=== PATIENT | female | born 1960 | race Caucasian/White ===

== ENCOUNTER 2020-01-07 17:45 | Outpatient (REF) | payer OTHER, SELFPAY ==
[2020-01-07 19:16] LABS: HCT 38.6 % (36.0-46.0); HGB 13.1 g/dL (11.2-15.7); MCH 29.3 pg (27.0-33.0); MCHC 33.9 % (32.0-36.0); MCV 86.4 fL (80-95); MPV 9.8 fL (8.0-11.0); Platelet Count 308 10^3/uL (130-400); RBC 4.47 10^6/uL (3.93-5.22); RDW 13.1 % (11.7-14.6); RDW-SD 41.2 fL; WBC 8.35 10^3/uL (4.4-10.8)
[2020-01-07 19:40] LABS: FREE T4 0.98 ng/dL (0.76-1.46); TSH 3.93 uIU/mL (0.36-3.74)
== END 2020-01-07 18:05 ==
LOC: NCHCN 17:45
PROVIDERS: PCP Internal Medicine; Visit Provider Internal Medicine
DX: H61.21 Impacted cerumen, right ear (principal); H65.20 Chronic serous otitis media, unspecified ear; E05.00 Thyrotoxicosis with diffuse goiter without thyrotoxic crisis or storm
CPT/HCPCS: 85027; 84439; 84443

== ENCOUNTER 2021-04-08 17:07 | Outpatient (REF) | payer OTHER, SELFPAY ==
[2021-04-08 19:52] LABS: HCT 39.8 % (36.0-46.0); HGB 12.8 g/dL (11.2-15.7); MCH 28.4 pg (27.0-33.0); MCHC 32.2 % (32.0-36.0); MCV 88.4 fL (80-95); MPV 10.1 fL (8.0-11.0); Platelet Count 321 10^3/uL (130-400); RDW-SD 42.5 fL; WBC 7.14 10^3/uL (4.4-10.8)
[2021-04-08 20:12] LABS: Anion Gap 9.2 mmol/L (3-11); BUN 20 mg/dL (7-18); CO2 26.8 mmol/L (21.0-32.0); CREATININE 0.6 mg/dL (0.55-1.02); Calcium 9.1 mg/dL (8.5-10.1); Chloride 104 mmol/L (98-107); FREE T4 0.92 ng/dL (0.76-1.46); Glucose 99 mg/dL (74-106); Sodium 140 mmol/L (136-145); TSH 4.96 uIU/mL (0.36-3.74)
[2021-04-08 20:26] LABS: Calculated LDL 200 mg/dL (<100); Cholesterol 300 mg/dL (<200); HDL Cholesterol 59 mg/dL (40-60); Triglyceride 206 mg/dL (<150)
== END 2021-04-08 17:08 | disposition home or self-care (01) ==
LOC: NCHCN 17:07
PROVIDERS: PCP Internal Medicine; Visit Provider Nurse Practitioner Family
DX: E05.00 Thyrotoxicosis with diffuse goiter without thyrotoxic crisis or storm (principal); Z13.220 Encounter for screening for lipoid disorders
CPT/HCPCS: 80048; 80061; 85027; 84439; 84443

== ENCOUNTER 2022-01-14 16:06 | Outpatient (REF) | payer OTHER, SELFPAY ==
[2022-01-14 18:47] LABS: Abs Immature Grans 0.02 10^3/uL (0.0-0.06); Absolute Basophil Count 0.03 10^3/uL (0.0-0.2); Absolute Eosinophil Count 0.01 10^3/uL (0.0-0.7); Absolute Lymphocyte Count 2.76 10^3/uL (1.2-3.4); Absolute Monocyte Count 0.49 10^3/uL (0.1-0.8); Basophils % 0.4; Eosinophils % 0.1; HCT 40.2 % (36.0-46.0); HGB 13.4 g/dL (11.2-15.7); Immature Grans % 0.3; Lymphocytes % 39.4; MCH 28.9 pg (27.0-33.0); MCHC 33.3 % (32.0-36.0); MCV 87 fL (80-95); MPV 10.6 fL (8.0-11.0); Neutrophils % 52.8; Platelet Count 288 10^3/uL (130-400); RBC 4.63 10^6/uL (3.93-5.22); RDW 13.2 % (11.7-14.6); RDW-SD 41.2 fL; WBC 7.01 10^3/uL (4.4-10.8)
[2022-01-14 19:00] LABS: TSH 2.33 uIU/mL (0.36-3.74)
[2022-01-15 20:52] LABS: Thyroglobulin Antibody 24 U/mL (<=60); Thyroperoxidase Antibody >1300 U/mL (<=60)
== END 2022-01-14 16:07 | disposition home or self-care (01) ==
LOC: NCHCN 16:06
PROVIDERS: PCP Internal Medicine; Visit Provider Nurse Practitioner Family
DX: E05.00 Thyrotoxicosis with diffuse goiter without thyrotoxic crisis or storm (principal)
CPT/HCPCS: 86376; 84443; 85025

== ENCOUNTER 2022-06-08 09:27 | Outpatient (REF) | payer OTHER, SELFPAY ==
--- NOTE | 2022-06-08 08:20 | PAPFT_PTH ---
PATIENT: Marleen Wells LOC: [facility]#:[id number] AGE/SX: 61/F ROOM: RE06/08/[address]: Edvin Pace : 1960 BED: DIS: 06/08/2022 SPEC #: [id number] RECD: 06/08/22 17:59 STATUS: MAURI REQ #: [id number] CHEPE: 06/08/22 08:[address]: Marianne Pacelaide DEPT: [facility] Cytology RECD BY: Shellei Whitman ENTERED: 06/08/22 17:59 SP TYPE: PAPFT OTHR DR: Arnav Jason Tissues: 1 - CX/ENDOCX FOR PAP SMEARS Procedures: PAP THIN PREP/[facility] Screening HPV DNA PROBE Comments: [id number]
[2022-06-08 18:55] LABS: ALT 25 U/L (14-59); AST 18 U/L (15-37); Albumin 3.9 g/dL (3.4-5.0); Alkaline Phosphatase 90 U/L (46-116); Anion Gap 7.1 mmol/L (3-11); BUN 17 mg/dL (7-18); Bilirubin, Total 0.5 mg/dL (0.2-1.0); CO2 28.9 mmol/L (21.0-32.0); CREATININE 0.7 mg/dL (0.55-1.02); Calcium 9.2 mg/dL (8.5-10.1); Calculated LDL 179 mg/dL (<100); Chloride 105 mmol/L (98-107); Cholesterol 265 mg/dL (<200); Estimated GFR 99.57 (mL/min/1.73m2); Glucose 101 mg/dL (74-106); HDL Cholesterol 62 mg/dL (40-60); Potassium 4.2 mmol/L (3.5-5.1); Sodium 141 mmol/L (136-145); Total Protein 7.4 g/dL (6.4-8.2); Triglyceride 120 mg/dL (<150)
== END 2022-06-08 09:28 | disposition home or self-care (01) ==
LOC: NCHCN 09:27
PROVIDERS: PCP Internal Medicine; Visit Provider Nurse Practitioner Family
DX: Z01.419 Encounter for gynecological examination (general) (routine) without abnormal findings (principal); Z12.4 Encounter for screening for malignant neoplasm of cervix; E78.5 Hyperlipidemia, unspecified
CPT/HCPCS: 80053; 80061; 88142; 87624

== ENCOUNTER 2022-12-06 13:23 | Outpatient (REF) | payer OTHER, SELFPAY | END 2022-12-06 13:24 | disposition home or self-care (01) | LOC: NCHCN 13:23 | PROVIDERS: PCP Internal Medicine; Visit Provider Nurse Practitioner Family | DX: E05.00 Thyrotoxicosis with diffuse goiter without thyrotoxic crisis or storm (principal) | CPT/HCPCS: 84443 ==

== ENCOUNTER 2024-03-12 18:54 | Outpatient (REF) | payer OTHER, SELFPAY ==
[2024-03-12 19:18] LABS: Abs Immature Grans 0.01 10^3/uL (0.0-0.06); Absolute Basophil Count 0.02 10^3/uL (0.0-0.2); Absolute Eosinophil Count 0.01 10^3/uL (0.0-0.7); Absolute Lymphocyte Count 3.23 10^3/uL (1.2-3.4); Absolute Monocyte Count 0.44 10^3/uL (0.1-0.8); Absolute Neutrophil Count 2.72 10^3/uL (1.2-6.7); Basophils % 0.3 %; Eosinophils % 0.2 %; HCT 41.8 % (36.0-46.0); HGB 13.7 g/dL (11.2-15.7); Immature Grans % 0.2 %; Lymphocytes % 50.2 %; MCH 28.4 pg (27.0-33.0); MCHC 32.8 % (32.0-36.0); MCV 87 fL (80-95); MPV 9.6 fL (8.0-11.0); Monocytes % 6.8 %; Neutrophils % 42.3 %; Platelet Count 324 10^3/uL (130-400); RBC 4.83 10^6/uL (3.93-5.22); RDW-SD 41.1 fL; WBC 6.43 10^3/uL (4.4-10.8)
== END 2024-03-12 18:55 | disposition home or self-care (01) ==
LOC: NCHCN 18:54
PROVIDERS: PCP Internal Medicine; Visit Provider Nurse Practitioner Family
DX: E55.9 Vitamin D deficiency, unspecified (principal); E05.00 Thyrotoxicosis with diffuse goiter without thyrotoxic crisis or storm
CPT/HCPCS: 82306; 85025

== ENCOUNTER 2025-02-26 16:57 | Outpatient (REF) | payer OTHER, SELFPAY ==
[2025-02-26 19:28] LABS: HCT 41.3 % (36.0-46.0); HGB 13.9 g/dL (11.2-15.7); MCH 28.8 pg (27.0-33.0); MCHC 33.7 % (32.0-36.0); MCV 86 fL (80-95); MPV 9.9 fL (8.0-11.0); Platelet Count 338 10^3/uL (130-400); RBC 4.83 10^6/uL (3.93-5.22); RDW 13.6 % (11.7-14.6); RDW-SD 43.0 fL; WBC 7.10 10^3/uL (4.4-10.8)
[2025-02-26 19:39] LABS: ALT 22 U/L (10-49); AST 24 U/L (<34); Albumin 4.5 g/dL (3.2-5.0); Alkaline Phosphatase 94 U/L (46-116); Anion Gap 7.1 mmol/L (3-11); BUN 19 mg/dL (9-23); Bilirubin, Total 0.4 mg/dL (0.2-1.2); CO2 27.9 mmol/L (20.0-31.0); Calcium 9.5 mg/dL (8.3-10.6); Chloride 106 mmol/L (98-107); Glucose 96 mg/dL (74-106); Potassium 4.1 mmol/L (3.5-5.1); Sodium 141 mmol/L (136-145); Total Protein 7.5 g/dL (5.7-8.2)
[2025-02-26 19:42] LABS: TSH (W/Ref FT4) 5.04 uIU/mL (0.55-4.78)
== END 2025-02-26 16:58 | disposition home or self-care (01) ==
LOC: NCHCN 16:57
PROVIDERS: PCP Internal Medicine; Visit Provider Nurse Practitioner Family
DX: E05.00 Thyrotoxicosis with diffuse goiter without thyrotoxic crisis or storm (principal); E66.9 Obesity, unspecified
CPT/HCPCS: 80053; 85027; 84439; 84443